=== PATIENT | male | born 1975 | race Two or more races ===

== ENCOUNTER 2025-03-30 11:50 | Emergency (ER) | payer MEDICAID, OTHER, SELFPAY ==
[2025-03-30 12:09] VITALS: BP 146/80; PULSE 65; RESP 22; TEMP 36.9; O2SAT 99; BMI 40.0
--- NOTE | 2025-03-30 13:39 | ED.GENADULT ---
HPI - General Adult General Date Seen: 03/30/25 Chief complaint: Shortness of Breath/Dyspnea Stated complaint: pneumonia symptoms Time Seen by Provider: 03/30/25 13:39 History of Present Illness HPI narrative: 50 yo M is referred from the Urgent Care to the ER today for evaluation of cough, abnormal labs. Per urgent care notes he has had cough for about 4 days with shortness of breath, headache, fatigue. Two episodes of hemoptysis. He has a past medical history of alcohol abuse, cirrhosis, and asthma (supposed to be on albuterol but apparently does not have an inhaler at his halfway). Labs drawn urgent care today showed a white count of 2.5, hemoglobin of 10.6, platelet count 36. COVID PCR was negative. Chest x-ray was read by Radiology showing ?impression: Lungs clear. Normal chest radiographs. History is limited from the patient because of Maltese-[place]ian language barrier. He is requesting that we do not use the iPad based motor equipment captain because apparently the iPad based motor equipment captain at the urgent care was not doing the job. He requests that we allow his halfway staff to interpret. His halfway staff is comfortable interpreting and feels that she has fluidly bilingual. He is currently a resident of a sober house/halfway and has been sober from drinking alcohol for just over a month. They report that he does have a history of liver disease and apparently has ?cirrhosis?. However he is not able to give any further details about the status of his liver disease. He is on medications prescribed by someone at [facility] including gabapentin, lactulose, vitamin B12,. He does not know the name of his prescribing doctor. He does not think he has a liver specialist. He does not have any upcoming follow-up appointments. We were able to get records faxed from [facility]. Per those records he did have a CT scan of his abdomen and pelvis with IV contrast on 02/24/2025. Findings: Hepatic cirrhosis with sequela of portal venous hypertension including prominent upper abdominal portosystemic venous collaterals including esophageal and gastric varices, recanalized umbilical vein, mild congestive colopathy and splenomegaly. No free intraperitoneal air. He had gallstones. Unremarkable pancreas, adrenals, kidneys. Mildly prominent amadeo hepatis lymph nodes, likely reactive. Normal urinary bladder. Small fat containing umbilical hernia. Colonic diverticulosis without diverticulitis. Normal caliber small and large bowel. Normal appendix. Degenerative spine changes. He had another CT scan of his abdomen pelvis on 01/28/2025. Impression: 1. No acute abdominal pelvic findings. Two. Stable findings of cirrhosis with sequelae of portal hypertension. Labs on 02/23/2025 Total bilirubin 2.2 Direct bilirubin 1.1 AST 82 ALT 39 Alk phos 106 Albumin 3.6 Total protein 6.9 Sodium 142 Potassium 3.9 Chloride 108 Bicarb 20 BUN 6 Creatinine 0.67 Calcium 9.1 Glucose 97 Hemoglobin 11.8 WBC 3.7 Platelet count [facility]25 Had been admitted for alcohol use disorder with alcohol induced mood disorder. Complicated by cirrhosis Gastric varices Thrombocytopenia Homelessness Cannabis use disorder Per discharge summary he had a workup in the ER for altered mental status. Initially admitted under a working diagnosis of substance induced psychosis versus delusional disorder versus encephalopathy. By the time of discharge refined diagnostic impression was encephalopathy, based on rapid improvement with re-initiation of lactulose. For the patient and his halfway staff he has been sick with cough that began about 4 days ago. He has had small tinges of hemoptysis. He also had a nose bleed that came from both nostrils 3 days ago on Sunday. He has been feeling poorly. He has not had any fever but has had chills. Additional history from the patient's group work program aide, Jackie [phone]. She has a more long-term relationship with [place]. She has actually been part of his care for couple of years and formally was able to arrange some care for his liver disease through the [facility] system. Recently he has been living in [address] got his care through [facility]. Since he became a resident of a halfway she has been in contact with the providers from [facility] and apparently they are sending a referral to someone here locally in [place], but that referral is not come through yet. I have also [facility] into [facility] to get him primary care but that for 1st available appointment is not until May. Related Data Home Medications ?Medication ?Instructions ?Recorded ?Confirmed folic acid 1 mg tablet 1 mg PO QDAY 03/30/25 03/30/25 gabapentin 600 mg tablet 600 mg PO TID 03/30/25 03/30/25 lactulose PO 03/30/25 pantoprazole 20 mg tablet,delayed 20 mg PO QDAY 03/30/25 03/30/25 release Previous Rx's ?Medication ?Instructions ?Recorded albuterol sulfate 90 mcg/actuation 2 puff inhalation Q6H PRN 03/30/25 aerosol inhaler shortness of breath or wheezing #6.7 grams albuterol sulfate 90 mcg/actuation 1 inh inhalation Q4-6H PRN 03/30/25 breath activated powder inhaler shortness of breath #1 ea benzonatate 100 mg capsule 100 mg PO TID PRN cough #14 caps 03/30/25 doxycycline hyclate 100 mg capsule 100 mg PO BID #10 caps 03/30/25 furosemide 20 mg tablet (Lasix) 20 mg PO DAILY #7 tabs 03/30/25 Allergies Allergy/AdvReac Type Severity Reaction Status Date / Time Unable to Assess Allergy Verified 03/30/25 12:20 Exam Narrative: Exam Narrative: Constitutional: Appears well-developed and well-nourished. Alert. Conversant through motor equipment captain. Non toxic. HENT: Head: Atraumatic. Nose: Small amount of purulent drainage from the right nostril. No active bleeding. Mouth/Throat: Oral mucosa is clear and moist. no trismus. Pharynx normal. Tonsils symmetric. No tonsillar enlargement, erythema, or exudate. Eyes: Conjunctivae normal. EOM normal. Pupils equal, round, and reactive to light. No scleral icterus. Neck: Normal range of motion. Neck supple. No tracheal deviation present. Cardiovascular: Normal rate, regular rhythm. No gallop. No friction rub. No murmur heard. Symmetric radial artery pulses Pulmonary/Chest: Effort normal. No stridor. No respiratory distress. No wheezes. No rales. No rhonchi . No tenderness. Abdominal: Soft. Bowel sounds normal. No distension. No mass. No tenderness. No definite hepatomegaly. No rebound. No guarding. Musculoskeletal: RUE: Normal range of motion. No tenderness. No deformity LUE: Normal range of motion. No tenderness. No deformity RLE: Normal range of motion. Trace edema. No tenderness. No deformity LLE: Normal range of motion. Trace edema. No tenderness. No deformity Neurological: Alert and oriented to person, place, and time. Normal strength. CN II-VII intact. No sensory deficit. GCS eye subscore is 4. GCS verbal subscore is 5. GCS motor subscore is 6. Normal coordination Skin: Skin is warm and dry. No rash noted. No pallor. Normal capillary refill. Psychiatric: Normal mood. Normal affect. Const: Vital Signs, click to edit/add: Vital Signs - 24 hr 03/30/25 12:09 Temperature 98.5 F Pulse Rate [Pulse Oximeter] 65 Respiratory Rate 22 Blood Pressure [Ri ght Upper Arm] 146/80 H Pulse Oximetry 99 Oxygen Delivery Me thod Room Air Course Vital Signs Vital signs: Initial Vital Signs Temperature 98.5 F 03/30/25 12:09 Temperature Source Temporal Artery Scan 03/30/25 12:09 Pulse Rate 65 03/30/25 12:09 Respiratory Rate 22 03/30/25 12:09 Blood Pressure 146/80 H 03/30/25 12:09 Blood Pressure Mean 102 03/30/25 12:09 Blood Pressure Position Sitting 03/30/25 12:09 Pulse Oximetry 99 03/30/25 12:09 Oxygen Delivery Method Room Air 03/30/25 12:09 Vital Signs Temperature 98.5 F 03/30/25 12:09 Pulse Rate 65 03/30/25 12:09 Respiratory Rate 22 03/30/25 12:09 Blood Pressure 146/80 H 03/30/25 12:09 Pulse Oximetry 99 03/30/25 12:09 Oxygen Delivery Method Room Air 03/30/25 12:09 Temperature 98.5 F 03/30/25 12:09 Pulse Rate 65 03/30/25 12:09 Respiratory Rate 22 03/30/25 12:09 Blood Pressure 146/80 H 03/30/25 12:09 Pulse Oximetry 99 03/30/25 12:09 Oxygen Delivery Method Room Air 03/30/25 12:09 Medical Decision Making MDM Narrative Medical decision making narrative: 50-year-old gentleman with a complex presentation to the ER. He is referred from urgent care because of cough and abnormal labs. 1. Cough: Symptoms could be consistent with an upper respiratory tract infection. Viral testing negative for COVID. There is no signs at this point of serious bacterial infection such as OM, RPA, epiglottitis, UNDERWATER WELDER, strep pharyngitis, pneumonia, sinusitis, meningitis, bacteremia, serious bacterial infection. Chest x-ray from urgent care is negative. There are no gastrointestinal symptoms at this point and no signs of dehydration. Although chest x-ray is clear were going to put him on antibiotics to cover for possible sinus infection as well as for potential bacterial infection in his lungs. He certainly would be immunocompromised with his baseline liver disease. He has no known allergies. Will put him on doxycycline 100 mg p.o. b.i.d. for 7 days. Also Tessalon for cough. Close followup with primary care physician is indicated. Return to ED for fever > 103, protracted vomiting, confusion, or other worsening. His halfway staff also note that he had apparently been diagnosed with asthma at some point in the past but does not have an inhaler. He is not wheezy on my lung exam today. No respiratory distress. They requested a given a prescription for an inhaler. I agreed to give him 1 time p.r.n. prescription for a inhaler that he can use. However right varela had rated the importance for him to have follow-up with PCP and proper workup for potential asthma. At this point I do not think he needs steroids. 2. Epistaxis: Patient did have some nose bleed about 2 days ago. No active bleeding here. He is hemodynamically stable. He is anemic but compared to his labs from [facility] about a month ago, baseline hemoglobin remains essentially unchanged. At this point I do not think he needs to be admitted for hemoglobin monitoring or nasal packing. 3. Pancytopenia: Patient does have low white count, low hemoglobin, low platelet count. These all are all similar when compared to labs from [facility] last month. Suspect this is probably bone marrow suppression from chronic alcohol abuse and from his chronic liver disease. At this point all these findings appear to be stable and chronic compared to last month. At this point I do not think he needs an emergent admission for hemoglobin monitoring or bone marrow biopsy. 4. Liver disease: Patient does have chronic cirrhosis with findings of portal hypertension per his recent CT. No symptoms of active GI bleeding. He does complain that he gets a lot of swelling in his legs. This is probably related to poor synthetic function is liver. Will try him on a low dose of furosemide help with his swelling. 5. Social. Patient does not have health insurance. Sounds like he is not a candidate for state health insurance apparently due to his immigration status. Formally had been getting care through the [facility] system, then moved to [place] and got care through [facility]. Now is here in [place] living at a sober house/halfway and does not have any primary care or insurance. In discussion with his halfway they have started the process to get him set up again with care through [facility] and also working at a care through [facility]. Think it is very important for this patient to get close outpatient follow-up with PCP because he will need monitoring for his kidney and electrolyte function, blood counts, and is chronic liver disease. He will need refills of his meds, including lactulose. (it looks like he was hospitalized at [facility] in February altered mental status that cleared once they initiated him on lactulose therapy.) Discussed in detail with his group work program aide. She is working to get him care. Lab Data Labs: Lab Results 03/30/25 Range/Units 15:36 WBC 2.56 L (4.50-11.00) K/uL RBC 3.40 L (4.30-5.90) m/uL Hgb 10.9 L (13.5-17.5) gm/dL Hct 31.9 L (37.0-53.0) % MCV 94 (80-100) fL MCH 32 (26-34) pg MCHC 34 (32-36) gm/dL RDW Coeff of Lorraine 15.0 (11.5-15.5) % Plt Count 37 L* (140-440) K/uL Neut % (Auto) 57.4 (42.0-72.0) % Lymph % (Auto) 26.2 (20-44) % Murray % (Auto) 12.5 H (0.0-11.0) % Eos % (Auto) 3.5 (0.0-7.0) % Baso % (Auto) 0.4 (0.0-3.0) % Neut # (Auto) 1.50 L (1.7-7.0) K/uL Lymph # (Auto) 0.70 L (0.90-2.90) K/uL Murray # (Auto) 0.30 (0.00-0.90) K/UL Eos # (Auto) 0.10 (0.00-0.50) K/uL Baso # (Auto) 0.00 (0.00-0.30) K/uL Abs Immat Gran (auto) 0.00 (0.00-0.30) K/uL Imm/Tot Granulo (auto) 0.0 % Total Bilirubin 2.1 H (0.1-1.5) mg/dL Direct Bilirubin 0.6 H (0.0-0.5) mg/dL AST 70 H (12-35) U/L ALT 43 (4-50) U/L Alkaline Phosphatase 163 H (40-150) U/L Total Protein 8.0 (6.0-8.3) g/dL Albumin 3.7 (3.3-5.0) g/dL Discharge Plan Discharge Clinical Impression: Cough, Cirrhosis, Pancytopenia, Epistaxis Patient Disposition: Home w/ Parent or Adult Condition: Stable Instructions: Cirrhosis of the Liver (ED), Acute Bronchitis (ED), Pancytopenia (DC) Additional Instructions: Please return to the ER right away if you have worsening shortness of breath, uncontrolled nose bleed (or other bleeding), fever, worsening abdominal pain or any other problems. It is very important for you to recheck with a primary care provider within 5-7 days. You should have repeat lab work to check her blood counts, electrolytes, liver function, and kidney function. You also will need refills of your long-term medications. If you need you can call the [facility] at [phone] to schedule an eye follow-up visit. Otherwise you can work with your doctors at [facility], [facility], or the providers at [facility] Prescriptions: New furosemide [Lasix] 20 mg tablet 20 mg PO DAILY Qty: 7 2RF doxycycline hyclate 100 mg capsule 100 mg PO BID Qty: 10 0RF benzonatate 100 mg capsule 100 mg PO TID PRN (Reason: cough) Qty: 14 0RF albuterol sulfate 90 mcg/actuation HFA aerosol inhaler 2 puff inhalation Q6H PRN (Reason: shortness of breath or wheezing) Qty: 6.7 0RF No Action gabapentin 600 mg tablet 600 mg PO TID folic acid 1 mg tablet 1 mg PO QDAY pantoprazole 20 mg tablet,delayed release (DR/EC) 20 mg PO QDAY albuterol sulfate 90 mcg/actuation aerosol powdr breath activated 1 inh inhalation Q4-6H PRN (Reason: shortness of breath) Qty: 1 0RF lactulose PO Follow Up/Referrals: Provider,Not a Local [Primary Care Provider, Family Practice] Stand Alone Forms: PayProp Info Instructions
[2025-03-30 15:56] LABS: Hematocrit 31.9 % (37.0-53.0); Hemoglobin* 10.9 gm/dL (13.5-17.5); Immature Granulocytes Abs Auto 0.00 K/uL (0.00-0.30); Immature Granulocytes Pct Auto 0.0 %; Mean Corpuscular HGB Conc 34 gm/dL (32-36); Mean Corpuscular Hemoglobin 32 pg (26-34); Mean Corpuscular Volume 94 fL (80-100); RDW Coefficient of Variation % 15.0 % (11.5-15.5); Red Blood Count 3.40 m/uL (4.30-5.90); White Blood Count* 2.56 K/uL (4.50-11.00)
[2025-03-30 16:02] LABS: Lymphocytes Absolute Auto 0.70 K/uL (0.90-2.90)
[2025-03-30 16:04] LABS: Slide Review Reflex No
[2025-03-30 16:11] LABS: Albumin* 3.7 g/dL (3.3-5.0)
[2025-03-30 16:14] LABS: Alanine Aminotransferase* 43 U/L (4-50); Alkaline Phosphatase* 163 U/L (40-150); Aspartate Amino Transferase* 70 U/L (12-35); Bilirubin Direct* 0.6 mg/dL (0.0-0.5); Bilirubin Total* 2.1 mg/dL (0.1-1.5); Total Protein* 8.0 g/dL (6.0-8.3)
== END 2025-03-30 17:16 | disposition home or self-care (01) ==
PROVIDERS: Emergency Provider Emergency Medicine
DX: R05.9 Cough, unspecified (principal); K74.60 Unspecified cirrhosis of liver; R04.0 Epistaxis; D61.818 Other pancytopenia
CPT/HCPCS: 36415; 80076; 85025; 99283; 99284